=== PATIENT | male | born 1945 | race Caucasian/White ===

== ENCOUNTER 2024-03-31 15:14 | Outpatient (NON) | payer MEDICARE, SELFPAY | END 2024-03-31 15:15 | disposition home or self-care (01) | PROVIDERS: PCP Internal Medicine; Visit Provider Orthopaedic Surgery | DX: M25.522 Pain in left elbow (principal); M70.22 Olecranon bursitis, left elbow | CPT/HCPCS: 87070; 87075; 87205 ==